=== PATIENT | female | born 1950 | race Caucasian/White ===

== ENCOUNTER 2019-05-20 06:38 | Day surgery (SDC) | payer MEDICARE, BC ==
[2019-05-19 15:14] LABS: BASOPHILS # (AUTO) 0.1 X10'3 (0-0.2); BASOPHILS % (AUTO) 0.6 % (0-1); EOSINOPHILS # (AUTO) 0.2 X10'3 (0-0.9); EOSINOPHILS % (AUTO) 2.1 % (0-6); LYMPHOCYTES # (AUTO) 1.7 X10'3 (1.1-4.8); LYMPHOCYTES % (AUTO) 18.7 % (21-51); MEAN CORPUSCULAR HEMOGLOBIN 30.4 PG (27.0-31.0); MEAN CORPUSCULAR HGB CONC 33.7 g/dL (33.0-36.5); MEAN PLATELET VOLUME 8.3 FL (7.4-10.4); MONOCYTES # (AUTO) 0.6 X10'3 (0-0.9); MONOCYTES % (AUTO) 6.7 % (2-12); NEUTROPHILS # (AUTO) 6.4 X10'3 (1.8-7.7); NEUTROPHILS % (AUTO) 71.9 % (42-75); PRE OP HEMOGLOBIN 15.5 g/dL (12.0-16.0); PRE OP PLATELET COUNT 295 X10'3 (140-440); RED BLOOD COUNT 5.11 X10'6 (4.20-5.60); RED CELL DISTRIBUTION WIDTH 12.9 % (11.5-14.5)
[2019-05-19 15:15] LABS: CLARITY,URINE SLIGHTLY CLOUDY (Clear); COLOR,URINE STRAW (Yellow); GLUCOSE, URINE NEGATIVE (Neg); KETONES,URINE NEGATIVE (Neg); LEUKOCYTE ESTERASE ,URINE SMALL (Neg); NITRITES, URINE NEGATIVE (Neg); OCCULT BLOOD,URINE NEGATIVE (Neg); PROTEIN,URINE NEGATIVE (Neg); UROBILINOGEN,URINE 0.2 E.U/dL (0.2-1.0)
[2019-05-19 15:16] LABS: UA COLLECTION TYPE CLN CATCH MIDSTREAM
[2019-05-19 15:23] LABS: BACTERIA,URINE 1+ /HPF (Neg); RBC,URINE 0-2 /HPF (0-2); SQUAMOUS EPITHELIAL CELL,UR MODERATE /LPF (FEW)
[2019-05-19 15:24] LABS: CAL OXALATE CRYSTALS 1+ /HPF (NEGATIVE)
[2019-05-19 15:25] LABS: MUCUS STRANDS FEW /LPF (Neg)
[2019-05-19 15:30] LABS: PRE OP PROTIME 10.2 SECONDS (9.0-12.0)
[2019-05-19 15:49] LABS: BLOOD UREA NITROGEN 23 MG/DL (7-18); PRE OP POTASSIUM 3.9 MMOL/L (3.4-5.1); PRE OP SODIUM 143 MMOL/L (135-145)
[2019-05-19 16:00] LABS: ALBUMIN/GLOBULIN RATIO 1.3 (1.1-1.5); ALKALINE PHOSPHATASE 79 IU/L (46-116); BUN/CREATININE RATIO 27.7 (6.6-38.0); CALCIUM 9.6 MG/DL (8.5-10.1); CHLORIDE 106 MMOL/L (99-107); CREATININE 0.83 MG/DL (0.40-0.90); PRE OP ALT 35 U/L (30-65); PRE OP ANION GAP 12 (8-16); PRE OP AST 23 U/L (10-37); PRE OP BILIRUB, TOTAL 0.6 MG/DL (0.0-1.0); PRE OP GLUCOSE 99 MG/DL (70-104); TOTAL CARBON DIOXIDE 25.3 MMOL/L (24-32); TOTAL PROTEIN 7.2 G/DL (6.4-8.2); eGFR 68 ML/MIN
[2019-05-20] VITALS (8 sets, daily range): BP systolic 111–173; BP diastolic 45–86
[~2019-05-20] VITALS: Ht 165.1 cm; Wt 98.2 kg
[~2019-05-20 06:38] MED LIST: ATOR10TA70 PO; CELE200C PO; LEVO75TA PO; LOSA100T57 PO; VALA100027 PO
[2019-05-20] MEDS ORDERED: ringers solution, lacted 1,000 ML IV SCH ×2 (06:45→08:30)
[2019-05-20] MEDS ORDERED: famotidine 20mg tablet PO ONE (06:45)
[2019-05-20] MEDS ORDERED: ceFOXitin 2 GM ADDvantage bag 100 ML IV ONE (06:45)
[2019-05-20] MEDS ORDERED: LIDOcaine 1% (10mg/ml) 2ml vial ONE (07:51)
[2019-05-20] MEDS ORDERED: proCHLORperazine 10 MG/2 ml inj IV PRN (08:30)
[2019-05-20] MEDS ORDERED: ondansetron/PF 4mg/2ml inj IV PRN (08:30)
[2019-05-20] MEDS ORDERED: meperidine/PF 25mg/ml syringe IV PRN ×3 (08:30)
[2019-05-20] MEDS ORDERED: morphine 4 MG/ML inj SYRINge IV PRN ×2 (08:30)
[2019-05-20] MEDS ORDERED: sevoflurane 250ml liquid IH ONE (08:31)
[2019-05-20] MEDS ORDERED: fentaNYL/PF 50MCG/1 ML 2ML syringe ONE (08:34)
[2019-05-20] MEDS ORDERED: midazolam 2 mg/2 ml injection ONE (08:35)
[2019-05-20] MEDS ORDERED: propofol inj 20 ML IV ONE (08:40)
[2019-05-20] MEDS ORDERED: ferric subsulfate solution/paste 1 APPLIC SOL.W.APPL TP ONE (09:05)
--- NOTE | 2019-05-20 09:18 | NUR ---
Received from OR via [facility], accompanied by Anesthesiologist Wilma and report given by Anesthesiolgist. Pt responding to questions, sleepy, all VS stable, mask to 10L O2 at 97%. No lap sites, renetta pad present, minimal drainage. Moves all extremeties. No perez cath. 20G right hand, LR IVF running at 100cc/hr.
--- NOTE | 2019-05-20 10:38 | NUR ---
Pt discharged by wheelchair to vehicle without incident. Pt IV dc'd. Pt and spouse verbalized understanding to all DC information. Pt did void, eat, drink and ambulate prior to leaving. She is back in her own clothing and spouse and belongings. Pt stated she felt a little short of breath after getting dressed but after sitting for 2 minutes it resolved. She did not have any issues breathing after this point and further observation before she left. She received instructions on what to do if she became short of breath again.
== END 2019-05-20 10:38 | disposition home or self-care (01) ==
LOC: PAS 06:38
PROVIDERS: ATTEND Obstetrics & Gynecology
DX: R87.613 High grade squamous intraepithelial lesion on cytologic smear of cervix (HGSIL) (principal); N88.8 Other specified noninflammatory disorders of cervix uteri; F41.9 Anxiety disorder, unspecified; I10 Essential (primary) hypertension; E03.9 Hypothyroidism, unspecified; G47.33 Obstructive sleep apnea (adult) (pediatric); E55.9 Vitamin D deficiency, unspecified; F32.89 Other specified depressive episodes; E78.5 Hyperlipidemia, unspecified; K21.9 Gastro-esophageal reflux disease without esophagitis; E11.9 Type 2 diabetes mellitus without complications; E66.9 Obesity, unspecified; Z68.36 Body mass index [BMI] 36.0-36.9, adult; Z98.890 Other specified postprocedural states; Z86.010 Personal history of colon polyps; Z79.899 Other long term (current) drug therapy; Z83.3 Family history of diabetes mellitus; Z83.49 Family history of other endocrine, nutritional and metabolic diseases; Z80.1 Family history of malignant neoplasm of trachea, bronchus and lung; Z82.3 Family history of stroke; Z82.49 Family history of ischemic heart disease and other diseases of the circulatory system
CPT/HCPCS: 36415; 57522; 80053; 81001; 82948; 85025; 85610; 85730; 86885; 86900; 86901; 87088; 93005; J0694; J2001; J2175; J2250; J2704; J3010; 88305; A4618; A7000; J7120